=== PATIENT | male | born 1975 | race Caucasian/White ===

== ENCOUNTER 2022-01-11 14:10 | Outpatient (CLI) | payer OTHER | END 2022-01-11 14:11 | disposition home or self-care (01) | LOC: CSHLAB 14:10 | PROVIDERS: ATTEND Internal Medicine Gastroenterology | DX: Z20.822 Contact with and (suspected) exposure to COVID-19 (principal) | CPT/HCPCS: U0003; U0005 ==

== ENCOUNTER 2022-01-16 08:24 | Day surgery (SDC) | payer OTHER ==
[2022-01-11 15:41] VITALS: BMI 29.0
[2022-01-16] MEDS ORDERED: Lidocaine 1% MPF 2 ML VIAL ONE (10:35)
[2022-01-16] MEDS ORDERED: Lidocaine 2% MPF 10 ML AMP (For Epidural Use) ONE (10:46)
[2022-01-16] MEDS ORDERED: PROPOFOL 60 ML ONE (10:46)
[2022-01-16] MEDS ORDERED: Fentanyl 100 MCG/2 ML VIAL ONE ×2 (10:46→11:24)
[2022-01-16] MEDS ORDERED: ePHEDrine Sulfate 50 MG/10 ML VIAL ONE (12:03)
== END 2022-01-16 12:34 | disposition home or self-care (01) ==
LOC: CSHSDC 08:24
PROVIDERS: ATTEND Internal Medicine Gastroenterology
PROC: 0DB48ZX Excision of Esophagogastric Junction, Via Natural or Artificial Opening Endoscopic, Diagnostic (ICD-10-PCS; principal; 2022-01-16)
PROC: 0DBP8ZX Excision of Rectum, Via Natural or Artificial Opening Endoscopic, Diagnostic (ICD-10-PCS; principal; 2022-01-16)
DX: Z12.11 Encounter for screening for malignant neoplasm of colon (principal); K62.1 Rectal polyp; K21.00 Gastro-esophageal reflux disease with esophagitis, without bleeding; K22.10 Ulcer of esophagus without bleeding; J45.909 Unspecified asthma, uncomplicated; G89.29 Other chronic pain; M19.90 Unspecified osteoarthritis, unspecified site; Z87.891 Personal history of nicotine dependence; Z79.51 Long term (current) use of inhaled steroids; Z79.899 Other long term (current) drug therapy; Z88.8 Allergy status to other drugs, medicaments and biological substances
CPT/HCPCS: 88305; J2704; J3010

== ENCOUNTER → 2022-06-13 | Day surgery (SDC) | payer OTHER ==
[~2022-06-13] MED LIST: Albuterol Sulfate 2.5 mg/3 ml Neb NEB PRN; Methacholine Chloride KIT IH SCH; Sodium Chloride For Inhalation 0.9% 3 ML NEB NEB PRN
== END ==
LOC: CSHCP 07:31
PROVIDERS: ATTEND Internal Medicine Pulmonary Disease
DX: J45.998 Other asthma (principal); I10 Essential (primary) hypertension; F32.A Depression, unspecified; F41.9 Anxiety disorder, unspecified; E78.00 Pure hypercholesterolemia, unspecified; Z79.51 Long term (current) use of inhaled steroids; Z79.899 Other long term (current) drug therapy
CPT/HCPCS: 94060; 94070; 94760; J7611; J7674